=== PATIENT | female | born 1990 | race Caucasian/White ===

== ENCOUNTER → 2018-11-20 | Outpatient (CLI) | payer MEDICAID ==
--- NOTE | 2018-11-20 17:21 | RADIOLOGY REPORT (SQ) ---
EXAM DESCRIPTION: U/S THYROID/SFT TISS HD NECK COMPLETED DATE/TIME: 11/20/2018 4:47 pm REASON FOR STUDY: E07.89 OTHER SPECIFIED DISORDERS OF THYROID E07.89 OTHER SPECIFIED DISORDERS OF T HYROID COMPARISON: None. TECHNIQUE: Dynamic and static berman-scale images acquired of the thyroid gland. Selected additional c olor/power Doppler images recorded. All images stored to PACS. LIMITATIONS: None. FINDINGS: RIGHT LOBE: Enlarged, 5.6 x 2.5 x 2.4 cm. Heterogeneous echotexture. No definable nodule s. LEFT LOBE: Enlarged, 5.2 x 2.3 x 1.9 cm. Heterogeneous echotexture. 5 mm hypoechoic nodule. ISTHMUS: Enlarged, 7 mm. Heterogeneous echotexture. No cystic or solid masses. OTHER: No other significant finding. IMPRESSION: There is mild enlargement of the thyroid gland. There is a 5 mm hypoechoic nodule in th e left lobe. TECHNICAL DOCUMENTATION: JOB ID: [id number] [email or web address]- All Rights Reserved Reading location - IP/workstation name: [email or web address]
== END ==
LOC: RAD 16:10
PROVIDERS: ATTEND Otolaryngology
DX: E04.1 Nontoxic single thyroid nodule (principal)
CPT/HCPCS: 76536